=== PATIENT | female | born 1965 | race Caucasian/White ===

== ENCOUNTER → 2016-11-05 | Outpatient (CLI) | payer BC ==
--- NOTE | 2016-11-05 09:43 | MM ---
Reason for exam: clinical finding. Last mammogram was performed 10 months ago. Indicated problem(s): non-bloody discharge in the right breast. Physical Findings: Nurse did not find any significant physical abnormalities on exam. MG 3D Diag Mammo W/Cad RT CC and MLO view(s) were taken of the right breast. Prior study comparison: January 01, 2016, bilateral MG 3d screening mammo w/cad. September 27, 2014, bilateral MG screening mammo w CAD. August 29, 2013, bilateral digital screening mammo w/CAD. There are scattered fibroglandular densities. Stable axillary and right upper outer quadrant intramammary lymph nodes. No significant new findings when compared with previous films. These results were verbally communicated with the patient and result sheet given to the patient on 11/05/16. ASSESSMENT: Incomplete: need additional imaging evaluation, BI-RAD 0 RECOMMENDATION: Ultrasound of the right breast. (as ordered by the clinician and for discharge)
--- NOTE | 2016-11-05 09:47 | USB ---
Reason for exam: clinical finding. Indicated problem(s): non-bloody discharge in the right breast. US Breast RT Right breast ultrasound includes all four quadrants, the retroareolar region and axilla. Finding demonstrates a 7 x 3 x 3mm oval, probable lymph node at 10 o'clock, corresponding to the mammographic finding. This can be reassessed in 6 months. These results were verbally communicated with the patient and result sheet given to the patient on 11/05/16. ASSESSMENT: Probably benign, BI-RAD 3 RECOMMENDATION: 1. Follow-up diagnostic mammogram of both breasts in 2 months (right and left breast for the patient's annual exam). Back on schedule for December 2016. 2. Ultrasound of the right breast in 8 months (this would keep the patient on track and serve as a 6 month followup for suspected intramammary lymph node). 3. Manage on a clinical basis with regard to nipple discharge. Note that suspicious discharge would be spontaneous bloody or clear and localized to a single pore on the nipple. This type of discharge would warrant further work up. [facility]
== END | disposition home or self-care (01) ==
LOC: RADMAMWWP 08:06
PROVIDERS: ATTEND Family Medicine
DX: O92.6 Galactorrhea (principal)
CPT/HCPCS: 76641; G0206; G0279

== ENCOUNTER → 2019-09-14 | Outpatient (CLI) | payer BC ==
--- NOTE | 2019-09-14 09:22 | MM ---
Reason for exam: additional evaluation requested from prior study. Last mammogram was performed 2 years and 10 months ago. History: Patient is postmenopausal. Physical Findings: Nurse did not find any significant physical abnormalities on exam. MG 3D Diag Mammo W/Cad MARCIA Bilateral CC and MLO view(s) were taken. Prior study comparison: November 05, 2016, right breast MG 3d diag mammo w/cad RT. January 01, 2016, bilateral MG 3d screening mammo w/cad. There are scattered fibroglandular densities. No suspicious abnormality. Stable right intramammary lymph nodes. No significant new findings when compared with previous films. These results were verbally communicated with the patient and result sheet given to the patient on 09/14/19. ASSESSMENT: Benign, BI-RAD 2 RECOMMENDATION: Routine screening mammogram of both breasts in 1 year.
--- NOTE | 2019-09-14 10:02 | USB ---
Reason for exam: additional evaluation requested from prior study. History: Patient is postmenopausal. US Breast Limited RT Right limited breast ultrasound including focal area of concern, retroareolar and axilla demonstrates a 0.7 x 0.2 x 0.6cm lesion at 10 o'clock, appears as a lymph node, prior 0.7 x 0.3 x 0.3cm and a 0.4 x 0.3 x 0.4cm lesion at 10 o'clock, appears as a lymph node. These results were verbally communicated with the patient and result sheet given to the patient on 09/14/19. ASSESSMENT: Benign, BI-RAD 2 RECOMMENDATION: Routine screening mammogram of both breasts in 1 year.
== END | disposition home or self-care (01) ==
LOC: RADMAMWWP 07:49
PROVIDERS: ATTEND Family Medicine
DX: R92.8 Other abnormal and inconclusive findings on diagnostic imaging of breast (principal)
CPT/HCPCS: 77062; 77066

== ENCOUNTER → 2019-09-27 | Outpatient (CLI) | payer BC ==
--- NOTE | 2019-09-27 11:02 | CT ---
EXAMINATION TYPE: CT heart w calcium score DATE OF EXAM: 09/27/2019 COMPARISON: None. HISTORY: Screening for cardiovascular disorder. 213.9 CT DLP: 51.9 mGycm Automated exposure control for dose reduction was used. CT CALCIUM SCORING Coronary calcium is a marker for plaque (fatty deposits) in a blood vessel or atherosclerosis (harden ing of the arteries). The presence and amount of calcium detected in a coronary artery by the CT sca n, indicates the presence and amount of atherosclerotic plaque. These calcium deposits appear years before the development of heart disease symptoms such as chest pain and shortness of breath. A calcium score is computed for each of the coronary arteries based upon the volume and density of th e calcium deposits. This can be referred to as your calcified plaque burden. It does not correspond directly to the percentage of narrowing in the artery but does correlate with the severity of the un derlying coronary atherosclerosis. PROCEDURE TECHNIQUE - Prospective Gating was used. Slice thickness: 3mm. Density threshold (HU): 130, Pixel threshold: 3, Algorithm: discrete. RESULTS Region: LM Calcium Score (Agatston): 0 Region: RCA Calcium Score ([place]at[place]): 0 Region: LAD Calcium Score ([place]at[place]): 0 Region: CX Calcium Score ([place]atston): 0 Region: PDA Calcium Score ([place]at[place]): 0 Total: Calcium Score ([place]atston): 0 TOTAL CALCIUM SCORE: 0 Incidental lobulated 4.7 x 4.6 cm lesion left hepatic lobe Hounsfield units average a consistent with simple thin-walled cyst. Incidental dominant left circumflex artery filling PDA. IMPRESSION: Calcium Score: 0 Implication: No identifiable plaque. Risk of Coronary Artery Disease: Very low, generally less than 5%.
== END | disposition home or self-care (01) ==
LOC: RADCTMAIN 08:16
PROVIDERS: ATTEND Family Medicine
DX: Z13.6 Encounter for screening for cardiovascular disorders (principal)
CPT/HCPCS: 75571

== ENCOUNTER → 2020-04-01 | Outpatient (CLI) | payer BC ==
--- NOTE | 2020-04-01 11:06 | US ---
EXAMINATION TYPE: US liver DATE OF EXAM: 04/01/2020 COMPARISON: CT 09/27/2019 CLINICAL HISTORY: 55-year-old female Q44.6 cystic disease of liver. Liver cyst seen on recent CT TECHNIQUE: Multiple sonographic images of the right upper quadrant are obtained. FINDINGS: EXAM MEASUREMENTS: Liver Length: 13.7 cm Gallbladder Wall: 0.3 cm CBD: 0.4 cm Right Kidney: 10.8 x 5.9 x 5.2 cm Pancreas: Obscured by bowel gas Liver: Cyst left hepatic dome measuring 5.3 x 2.9 x 5.3 cm Gallbladder: No stones seen. Mildly hydropic measuring 5 cm in length. Some ringdown artifact is not ed at the fundus of the gallbladder suggesting adenomyomatosis. Wall is borderline at 3 mm. No surrou nding fluid. Evidence for sonographic Looney's sign: No CBD: wnl Right Kidney: No hydronephrosis. IMPRESSION: 1. Ultrasound findings compatible with a 5.3 cm benign cyst of the left hepatic dome. 2. Mildly hydropic gallbladder measuring 5 cm wide probably relating to fasting state. No gallstones. Incidental adenomyomatosis at the fundus of the gallbladder. 3. No biliary ductal dilatation.
== END | disposition home or self-care (01) ==
LOC: RADUSWWP 07:28
PROVIDERS: ATTEND Family Medicine
DX: Q44.6 Cystic disease of liver (principal)
CPT/HCPCS: 76705

== ENCOUNTER → 2021-05-08 | Outpatient (CLI) | payer BC ==
--- NOTE | 2021-05-12 09:57 | MM ---
Reason for exam: screening (asymptomatic). Last mammogram was performed 1 year and 8 months ago. History: Patient is postmenopausal. Took hormonal contraceptives for 5 years. Physical Findings: A clinical breast exam by your physician is recommended on an annual basis and results should be correlated with mammographic findings. MG 3D Screening Mammo W/Cad Bilateral CC and MLO view(s) were taken. Prior study comparison: September 14, 2019, bilateral MG 3d diag mammo w/cad MARCIA. November 05, 2016, right breast MG 3d diag mammo w/cad RT. January 01, 2016, bilateral MG 3d screening mammo w/cad. There are scattered fibroglandular densities. There is chronic nodularity in the right breast. No significant changes when compared with prior studies. ASSESSMENT: Benign, BI-RAD 2 RECOMMENDATION: Routine screening mammogram of both breasts in 1 year.
== END | disposition home or self-care (01) ==
LOC: RADMAMWWP 16:22
PROVIDERS: ATTEND Family Medicine
DX: Z12.31 Encounter for screening mammogram for malignant neoplasm of breast (principal)
CPT/HCPCS: 77063; 77067

== ENCOUNTER → 2023-12-03 | Outpatient (CLI) | payer BC ==
--- NOTE | 2023-12-08 12:06 | MM ---
Reason for Exam: Screening (asymptomatic). Last mammogram was performed 2 year(s) and 7 month(s) ago. Patient History: Menarche at age 13. First Full-Term at age 25. Postmenopausal. Patient has history of breast feeding. Patient used Hormonal Contraceptives for 5 years. Risk Values: Tarah 5 year model risk: 1.2%. NCI Lifetime model risk: 7.9%. Prior Study Comparison: 11/05/2016 Right Diagnostic Mammogram, [facility]. 09/14/2019 Bilateral Diagnostic Mammogram, [facility]. 05/08/2021 Bilateral Screening Mammogram, [facility]. Tissue Density: There are scattered areas of fibroglandular density. Findings: Analyzed By CAD. There is no suspicious group of microcalcifications or new suspicious mass in either breast. Stable benign-appearing lymph node in the right axilla under emergent right breast. Benign calcifications. Overall Assessment: Benign, BI-RAD 2 Management: Screening Mammogram of both breasts in 1 year. . Patient should continue monthly self-breast exams. A clinical breast exam by your physician is recommended on an annual basis. This exam should not preclude additional follow-up of suspicious palpable abnormalities. Note on Tarah scores and lifetime risk: 1. A Tarah score greater than 3% is considered moderate risk. If this is the case, consider specialist referral to assess eligibility for a risk reducing agent. 2. If overall lifetime risk for the development of breast cancer is 20% or higher, the patient may qualify for future screening with alternating mammogram and breast MRI. Electronically signed and approved by: Ja Toney M.D. Radiologis
== END | disposition home or self-care (01) ==
LOC: RADMAMWWP 07:46
PROVIDERS: ATTEND Family Medicine
DX: Z12.31 Encounter for screening mammogram for malignant neoplasm of breast (principal); Z78.0 Asymptomatic menopausal state
CPT/HCPCS: 77063; 77067

== ENCOUNTER 2024-03-17 13:06 | Emergency (ER) | payer BC ==
[2024-03-17 13:16] VITALS: TEMP 97.9
[2024-03-17 14:17] LABS: Basophils % (A) 0 %; Eosinophils # (A) 0.1 k/uL (0-0.7); Eosinophils % (A) 2 %; HCT 41.4 % (34.0-46.0); HGB 13.6 gm/dL (11.4-16.0); Lymphocytes # (A) 1.5 k/uL (1.0-4.8); Lymphocytes % (A) 28 %; MCH 31.3 pg (25.0-35.0); MCHC 32.9 g/dL (31.0-37.0); MCV 95.3 fL (80.0-100.0); Mean Platelet Volume 9.4; Monocytes # (A) 0.3 k/uL (0-1.0); Monocytes % (A) 6 %; Neutrophils # (A) 3.4 k/uL (1.3-7.7); Neutrophils % (A) 63 %; Platelet Count 162 k/uL (150-450); RBC 4.34 m/uL (3.80-5.40); RDW 13.1 % (11.5-15.5); WBC 5.3 k/uL (3.8-10.6)
[2024-03-17 14:30] LABS: Prothrombin Time 10.8 sec (10.0-12.5)
[2024-03-17 14:31] LABS: ALT 20 U/L (4-34); AST 25 U/L (14-36); African American GFR (CKD) >90 (>60 ml/min/1.73 sqM); Albumin 4.2 g/dL (3.5-5.0); Alkaline Phosphatase 57 U/L (38-126); Anion Gap 6 mmol/L; Blood Urea Nitrogen 16 mg/dL (7-17); Calcium 9.5 mg/dL (8.4-10.2); Carbon Dioxide 26 mmol/L (22-30); Chloride 104 mmol/L (98-107); Creatine Kinase 99 U/L (30-135); Glucose 106 mg/dL (74-99); Non-African American GFR(CKD) >90 (>60 ml/min/1.73 sqM); Potassium 4.1 mmol/L (3.5-5.1); Sodium 136 mmol/L (137-145); Total Bilirubin 0.7 mg/dL (0.2-1.3); Total Protein 6.7 g/dL (6.3-8.2)
--- NOTE | 2024-03-17 15:12 | CT ---
EXAMINATION TYPE: CT brain wo con CT DLP: 1109.7 mGycm, Automated exposure control for dose reduction was used. DATE OF EXAM: 03/17/2024 2:40 PM COMPARISON: None. CLINICAL INDICATION: Female, 59 years old with history of Neuro deficit, acute, stroke suspected, lef t lower leg numbness TECHNIQUE: Brain: Axial CT images of the brain were obtained with coronal and sagittal reformats created and rev iewed. Contrast used: None. Oral contrast used: None. FINDINGS: Brain: Extra-axial spaces: No abnormal extra-axial fluid collections. Ventricular system: Within normal limits Cerebral parenchyma: No acute intraparenchymal hemorrhage or mass effect. The [place]-white junction is well differentiated. Cerebellum: Unremarkable. Mass effect: No evidence of midline shift. Intracranial vasculature: unremarkable Soft tissues: Normal. Calvarium/osseous structures: No depressed skull fracture. Paranasal sinuses and mastoid air cells: Mild scattered paranasal sinus disease. Visualized orbits: Orbital contents are intact. IMPRESSION: No acute intracranial process.
--- NOTE | 2024-03-17 15:53 | US ---
EXAMINATION TYPE: US venous doppler duplex LE LT DATE OF EXAM: 03/17/2024 3:05 PM COMPARISON: NONE CLINICAL INDICATION: Female, 59 years old with history of numb/cramping; woke up this am with numb le g and she cant weight bare, no h/o DVT SIDE PERFORMED: Left TECHNIQUE: The lower extremity deep venous system is examined utilizing real time linear array sonog smitha with graded compression, doppler sonography and color-flow sonography. VESSELS IMAGED: Common Femoral Vein Deep Femoral Vein Greater Saphenous Vein * Femoral Vein Popliteal Vein Small Saphenous Vein * Proximal Calf Veins Posterior tibial veins (* superficial vessels) Left Leg: Negative for DVT IMPRESSION: No evidence for DVT within the left lower extremity.
--- NOTE | 2024-03-17 19:18 | ED ---
Extremity Problem HPI - General Source: patient Mode of arrival: ambulatory Limitations: no limitations <Edilberto Gracia - Last Filed: 03/17/24 22:30> <Carol Simeon - Last Filed: 03/18/24 11:02> - General Chief complaint: Extremity Problem,Nontraumatic Stated complaint: L leg numbness Time Seen by Provider: 03/17/24 13:33 - History of Present Illness Initial comments: 59-year-old female presenting with chief complaint of numbness to the left lower leg. Symptoms started when she woke up this morning. She denies any injury or trauma. She is able to stand and walk but states that she cannot stand up on her tiptoes. She does have history of lower back pain and has had previous radiculopathy. No fevers or chills. No chest pain or difficulty breathing no swelling. (Edilberto Gracia) - Related Data Previous Rx's Medication Instructions Recorded Ibuprofen [Motrin] 600 mg PO Q6HR PRN #20 tab 09/16/14 Allergies Allergy/AdvReac Type Severity Reaction Status Date / Time No Known Allergies Allergy Verified 03/17/24 13:16 Review of Systems ROS Other: All systems not noted in ROS Statement are negative. <Edilberto Gracia - Last Filed: 03/17/24 22:30> ROS Other: All systems not noted in ROS Statement are negative. <Carol Simeon - Last Filed: 03/18/24 11:02> ROS Statement: Those systems with pertinent positive or pertinent negative responses have been documented in the HPI. Past Medical History Past Medical History: No Reported History History of Any Multi-Drug Resistant Organisms: None Reported Past Surgical History: Back Surgery Past Psychological History: No Psychological Hx Reported Smoking Status: Current every day smoker Past Alcohol Use History: Occasional Past Drug Use History: None Reported <Edilberto Gracia - Last Filed: 03/17/24 22:30> General Exam Limitations: no limitations General appearance: alert, in no apparent distress Head exam: Present: atraumatic, normocephalic Eye exam: Present: normal appearance, EOMI Neck exam: Present: normal inspection. Absent: meningismus Respiratory exam: Absent: respiratory distress Cardiovascular Exam: Present: regular rate Left Lower Leg exam: Present: normal inspection, full ROM. Absent: tenderness, swelling, erythema Neurovascular tendon exam: Present: no vascular compromise Neurological exam: Present: alert, oriented X3 Expanded Motor strength exam: RLE: 5, LLE: 3 Eye Response: (4) open spontaneously Motor Response: (6) obeys commands Verbal Response: (5) oriented [place] Total: 15 Psychiatric exam: Present: normal affect, normal mood Skin exam: Present: warm, dry <Edilberto Gracia - Last Filed: 03/17/24 22:30> Course Vital Signs 03/17/24 03/17/24 13:13 20:05 Temperature 97.9 F Pulse Rate 78 75 Respiratory 20 18 Rate Blood Pressure 172/101 132/65 O2 Sat by Pulse 99 98 Oximetry Medical Decision Making - Lab Data Result diagrams: 03/17/24 14:00 03/17/24 14:00 <Edilberto Gracia - Last Filed: 03/17/24 22:30> - Lab Data Result diagrams: 03/17/24 14:00 03/17/24 14:00 <Carol Simeon - Last Filed: 03/18/24 11:02> - Medical Decision Making Was pt. sent in by a medical professional or institution (, PA, VISUAL JOURNALIST, urgent care, hospital, or group home...) When possible be specific @ -No Did you speak to anyone other than the patient for history (EMS, parent, family, police, friend...)? What history was obtained from this source @ -No Did you review nursing and triage notes (agree or disagree)? Why? @ -I reviewed and agree with nursing and triage notes Were old charts reviewed (outside hosp., previous admission, EMS record, old EKG, old radiological studies, urgent care reports/EKG's, group home records)? Report findings @ -No old charts were reviewed Differential Diagnosis (chest pain, altered mental status, abdominal pain women, abdominal pain men, vaginal bleeding, weakness, fever, dyspnea, syncope, headache, dizziness, GI bleed, back pain, seizure, CVA, palpatations, mental health, musculoskeletal)? @ -Differential Musculoskeletal Muscular strain, contusion, ligament sprain, fracture, arthritis, septic ar thritis, bursitis, cellulitis, muscle spasm, nerve compression, DVT, arterial occlusion, herpes zoster, electrolyte abnormality, tumor.... This is not meant to be in all inclusive list EKG interpreted by me (3pts min.). @ -As above X-rays interpreted by me (1pt min.). @ -None done CT interpreted by me (1pt min.). @ -CT brain shows no acute intracranial process U/S interpreted by me (1pt. min.). @ -Ultrasound negative for DVT What testing was considered but not performed or refused? (CT, X-rays, U/S, labs)? Why? @ -None What meds were considered but not given or refused? Why? @ -None Did you discuss the management of the patient with other professionals (professionals i.e. Dr., PA, VISUAL JOURNALIST, lab, RT, psych nurse, social services counselor, building maintenance worker, teacher, hazard mitigation officer, cyanide case hardener)? Give summary @ -No Was smoking cessation discussed for >3mins.? @ -No Was critical care preformed (if so, how long)? @ -No Were there social determinants of health that impacted care today? How? (Homelessness, low income, unemployed, alcoholism, drug addiction, transportation, low edu. Level, literacy, decrease access to med. care, shelter, rehab)? @ -No Was there de-escalation of care discussed even if they declined (Discuss DNR or withdrawal of care, Hospice)? DNR status @ -No What co-morbidities impacted this encounter? (DM, HTN, Smoking, COPD, CAD, Cancer, CVA, ARF, Chemo, Hep., AIDS, mental health diagnosis, sleep apnea, morbid obesity)? @ -None Was patient admitted / discharged? Hospital course, mention meds given and route, prescriptions, significant lab abnormalities, going to OR and other per tinent info. @ -59-year-old female presenting with chief complaint of numbness to the left lower leg that started when she woke up today. No injury or trauma. Normal peripheral pulses. She does have some diminished strength in the leg. Negative CT of the brain and ultrasound for DVT. Symptoms likely from radiculopathy. Given Decadron 10 mg. Educated on today's findings and supportive management. Educated on alarm symptoms. Discharged. Follow-up with PCP. Report back to ER with any new or worsening symptoms. Discussed return parameters and answered all questions. Patient conveyed verbal understanding and agreed to the plan. I discussed this case in detail with my attending Dr. Simeon Undiagnosed new problem with uncertain prognosis? @ -No Drug Therapy requiring intensive monitoring for toxicity (Heparin, Nitro, Insulin, Cardizem)? @ -No Were any procedures done? @ -No Diagnosis/symptom? @ -Radiculopathy Acute, or Chronic, or Acute on Chronic? @ -Acute Uncomplicated (without systemic symptoms) or Complicated (systemic symptoms)? @ -Uncomplicated Side effects of treatment? @ -No Exacerbation, Progression, or Severe Exacerbation? @ -No Poses a threat to life or bodily function? How? (Chest pain, [place], [place], pneumonia, PE, COPD, DKA, ARF, appy, cholecystitis, CVA, Diverticulitis, Homicidal, Suicidal, threat to staff... and all critical care pts) @ -Unlikely (Edilberto Gracia) Case presented to myself by PA. 59 y/o female hx HTN presenting for distal LLE tingling and weakness with plantarflexion. No injury, no back pain. Pt does have hx prior laminectomy. On exam patient awake, alert in NAD, and pleasant. Focused physical exam showed no midline spinal TTP. Decreased sensation to light touch along the S1/L5 dermatome, 3-4/5 strength with plantar flexion, no clonus, downgoing/normal babinski reflex, 2+ DP pulse, skin pink and well perfused, no swelling or injury, sensatioin to light touch along top of foot and anterior and medial aspect distal LE intact. Additionally, pt notes that change in sensation does appear to be positional, worse when sitting up as opposed to lying flat. No additional focal neurologic deficits. Pt's exam consist with peripheral neuropathy/parasthesia. Pt to be discharged home with neuro and ortho spine follow up. Discussed plan of care with patient and she is comfortable and agreeable with plan. (Carol Simeon) - Lab Data Lab Results 03/17/24 03/17/24 03/17/24 Range/Units 14:00 14:00 14:00 WBC 5.3 (3.8-10.6) k/uL RBC 4.34 (3.80-5.40) m/uL Hgb 13.6 (11.4-16.0) gm/dL Hct 41.4 (34.0-46.0) % MCV 95.3 (80.0-100.0) fL MCH 31.3 (25.0-35.0) pg MCHC 32.9 (31.0-37.0) g/dL RDW 13.1 (11.5-15.5) % Plt Count 162 (150-450) k/uL MPV 9.4 Neutrophils % 63 % Lymphocytes % 28 % Monocytes % 6 % Eosinophils % 2 % Basophils % 0 % Neutrophils # 3.4 (1.3-7.7) k/uL Lymphocytes # 1.5 (1.0-4.8) k/uL Monocytes # 0.3 (0-1.0) k/uL Eosinophils # 0.1 (0-0.7) k/uL Basophils # 0.0 (0-0.2) k/uL PT 10.8 (10.0-12.5) sec INR 1.0 (<1.2) APTT 25.0 (22.0-30.0) sec Sodium 136 L (137-145) mmol/L Potassium 4.1 (3.5-5.1) mmol/L Chloride 104 (98-107) mmol/L Carbon Dioxide 26 (22-30) mmol/L Anion Gap 6 mmol/L BUN 16 (7-17) mg/dL Creatinine 0.51 L (0.52-1.04) mg/dL Est GFR (CKD-EPI)AfAm >90 (>60 ml/min/1.73 sqM) Est GFR (CKD-EPI)NonAf >90 (>60 ml/min/1.73 sqM) Glucose 106 H (74-99) mg/dL Calcium 9.5 (8.4-10.2) mg/dL Total Bilirubin 0.7 (0.2-1.3) mg/dL AST 25 (14-36) U/L ALT 20 (4-34) U/L Alkaline Phosphatase 57 (38-126) U/L Creatine Kinase 99 (30-135) U/L Troponin I (0.000-0.034) ng/mL Total Protein 6.7 (6.3-8.2) g/dL Albumin 4.2 (3.5-5.0) g/dL 03/17/24 Range/Units 14:00 WBC (3.8-10.6) k/uL RBC (3.80-5.40) m/uL Hgb (11.4-16.0) gm/dL Hct (34.0-46.0) % MCV (80.0-100.0) fL MCH (25.0-35.0) pg MCHC (31.0-37.0) g/dL RDW (11.5-15.5) % Plt Count (150-450) k/uL MPV Neutrophils % % Lymphocytes % % Monocytes % % Eosinophils % % Basophils % % Neutrophils # (1.3-7.7) k/uL Lymphocytes # (1.0-4.8) k/uL Monocytes # (0-1.0) k/uL Eosinophils # (0-0.7) k/uL Basophils # (0-0.2) k/uL PT (10.0-12.5) sec INR (<1.2) APTT (22.0-30.0) sec Sodium (137-145) mmol/L Potassium (3.5-5.1) mmol/L Chloride (98-107) mmol/L Carbon Dioxide (22-30) mmol/L Anion Gap mmol/L BUN (7-17) mg/dL Creatinine (0.52-1.04) mg/dL Est GFR (CKD-EPI)AfAm (>60 ml/min/1.73 sqM) Est GFR (CKD-EPI)NonAf (>60 ml/min/1.73 sqM) Glucose (74-99) mg/dL Calcium (8.4-10.2) mg/dL Total Bilirubin (0.2-1.3) mg/dL AST (14-36) U/L ALT (4-34) U/L Alkaline Phosphatase (38-126) U/L Creatine Kinase (30-135) U/L Troponin I <0.012 (0.000-0.034) ng/mL Total Protein (6.3-8.2) g/dL Albumin (3.5-5.0) g/dL Disposition Is patient prescribed a controlled substance at d/c from ED?: No Time of Disposition: 19:18 <Edilberto Gracia - Last Filed: 03/17/24 22:30> <Carol Simeon - Last Filed: 03/18/24 11:02> Clinical Impression: Radiculopathy Disposition: HOME SELF-CARE Condition: Good Instructions (If sedation given, give patient instructions): Lumbar Radiculopathy (ED) Additional Instructions: Follow-up with PCP, orthopedics, neurology. Report back to ER with any new or worsening symptoms. Referrals: Paula Norris MD [Primary Care Provider] - 1-2 days Victor Hugo Lester DO [Doctor of Osteopathic Medicine] - 1-2 days Stephy Ty MD [Medical Doctor] - 1-2 days
[2024-03-17] MEDS: DEXAMETHASONE SOD PHOSPHATE 10 MG/ML 1 ML VIAL IM STA (20:01)
[2024-03-17 20:06] VITALS: BP 132/65; PULSE 75; RESP 18
== END 2024-03-17 20:06 | disposition home or self-care (01) ==
LOC: EC 13:06
DX: G57.92 Unspecified mononeuropathy of left lower limb
CPT/HCPCS: 36415; 70450; 80053; 82550; 84484; 85025; 85610; 85730; 93005; 96372; 99284